=== PATIENT | female | born 1965 | race Caucasian/White ===

== ENCOUNTER 2018-08-09 15:49 | Observation (INO) ==
[~2018-08-09 15:49] MED LIST: BENADRYL IV ONE; COGENTIN PO ONE; NS 1,000 ML IV ONE
--- NOTE | 2018-08-09 16:41 | Diag Imaging Result Doc PS360 ---
EXAM: CHEST-PORTABLE 08/09/2018 HISTORY: AMS TECHNIQUE: Erect AP portable at 1641 COMMENT: Considering differences in technique compared to 07/03/2017 there has been no significant change in the appearance of the chest. There are some apparent linear fibrotic scars present in the left base and lingula. IMPRESSION: Stable chest. Electronically signed by Shai Mejía 08/09/2018 4:38 PM
--- NOTE | 2018-08-09 17:53 | PROVIDER DOCUMENTATION ---
This chart was entered by Quin Olivares Scribe, acting as scribe for Long Guzman MD. HPI-Psychological Disorder - General Source: patient, family - History of Present Illness-Psych Onset/Duration: reports: 24 hours ago Timing: reports: still present Severity: reports: moderate Situational problems related to:: reports: N/A Psychiatric Complaints: reports: hallucinating, paranoid, restlessness Substance Use: reports: none/never Previous psych related hospitalizations?: Yes Patient arrived by:: EMS called by spouse/family Similar Symptoms Previously?: Yes Recently seen or treated by another doctor?: No <Long Guzman - Last Filed: 08/09/18 18:28> <Sal Paredes - Last Filed: 08/09/18 20:03> - General Stated Complaint: Psych; neck pain Time Seen by Provider: 08/09/18 15:38 Allergies/Adverse Reactions: Patient Allergies Allergy/AdvReac Type Severity Reaction Status Date / Time Corticosteroids Allergy Unknown Verified 12/03/13 09:16 (Glucocorticoids) ziprasidone HCl * Allergy Unknown Verified 11/28/13 05:08 [From Geodon] ziprasidone mesylate * Allergy Unknown Verified 11/28/13 05:08 [From Geodon] Home Medications: Home Medication List Medication Instructions Recorded Confirmed Last Taken Type Carbidopa/Levodopa [Carbidopa-Levo 1 each PO DIRECTED 08/20/12 04/03/18 04/02/18 19:00 History 25-100 Tab] Aspirin 81 mg PO DAILY 05/03/17 04/03/18 03/30/18 07:00 History Famotidine 20 mg PO BID 05/03/17 04/03/18 04/02/18 19:00 History Multivitamin [Multivitamins] 1 cap PO DAILY 05/03/17 04/03/18 04/02/18 07:00 His tory Ondansetron HCl [Zofran] 4 mg PO PRN PRN 05/03/17 04/03/18 07/02/17 07:00 History Polyethylene Glycol 3350 [Miralax] 17 g PO DAILY 05/03/17 04/03/18 04/02/18 07:00 History Sennosides/Docusate Sodium 2 tab PO BID 05/03/17 04/03/18 04/02/18 19:00 History [Senexon-S Tablet] Buspirone HCl [Buspar] 5 mg PO BID #60 tab 07/10/17 04/03/18 04/02/18 19:00 Rx Fluoxetine [Prozac] 20 mg PO DAILY #30 capsule 07/10/17 04/03/18 04/02/18 07:00 Rx Hydrocodone Bit/Acetaminophen 1 tab PO TID #90 tablet 07/10/17 04/03/18 04/02/18 15:00 Rx [Hydrocodon-Acetaminophen 5-325] Lamotrigine [Lamictal] 100 mg PO DAILY #30 tablet 07/10/17 04/03/18 04/02/18 07:00 Rx Lamotrigine [Lamictal] 150 mg PO QHS #45 tablet 07/10/17 04/03/18 04/02/18 19:00 Rx Lorazepam 0.5 mg PO TID #90 tablet 07/10/17 04/03/18 04/02/18 15:00 Rx Acetaminophen [Tylenol] 325 mg PO Q4-6H PRN PRN 03/23/18 03/23/18 Unknown History Bismuth Subsalicylate 30 ml PO Q30M PRN PRN 03/23/18 04/03/18 Unknown History [Pepto-Bismol] Clozapine 100 mg PO BID 03/23/18 04/03/18 04/02/18 09:00 History Cyclobenzaprine HCl [Flexeril] 5 mg PO DAILY 03/23/18 04/03/18 04/02/18 07:00 History Famotidine in 0.9 % NaCl 2.5 ml PO BID 03/23/18 04/03/18 04/01/18 21:00 History [Famotidine 20 mg/5 ml-Ns Syr] Magnesium Hydroxide [Milk of 30 ml PO DAILY PRN 03/23/18 03/23/18 Unknown History Magnesia] Promethazine [Phenergan] 12.5 mg AR DIRECTED PRN 03/23/18 03/23/18 Unknown History - History of Present Illness-Psych Nature of Presenting Problem: 52 y/o female presents to ED with paranoid delusions onset yesterday. Mother of pt reports the retirement called and said she was uncooperative and that she needed a psych eval. Pt states the retirement staff is trying to kill her. Pt has hx bipolar and Parkinson's. Mother reports her symptoms began after she was put back on zyprexia a couple of weeks ago. Pt is alert and oriented. (Long Guzman) Review of Systems - Adult - REVIEW OF SYSTEMS - ADULT Constitutional: denies: chills, fever Eyes: reports: no symptoms reported Ears, Nose, Mouth & Throat: reports: no symptoms reported Cardiovascular: denies: chest pain, palpitations Respiratory: denies: cough, shortness of breath Gastrointestinal: denies: abdominal pain, diarrhea, nausea, vomiting Genitourinary: reports: no symptoms reported Musculoskeletal: denies: back pain, joint pain Integumentary: reports: no symptoms reported Neurological: denies: dizziness/vertigo, seizure Psychiatric: reports: emotional problems, other (paranoid hallucinations). denies: suicidal thoughts Endocrine: reports: no symptoms reported Hematologic/Lymphatic: reports: no symptoms reported Allergic/Immunologic: reports: no symptoms reported All Other Systems: Reviewed and Negative <Long Guzman - Last Filed: 08/09/18 18:28> Past History - Adult - PAST MEDICAL HISTORY-ADULT Review of Records: reports: Old Records Reviewed, Nursing Assessment Review, Medications Reviewed Major Childhood Illnesses: reports: denies history Cardiovascular: reports: denies history, HTN Respiratory: reports: denies history Gastrointestinal: reports: denies history Obstetrical/Gynecological: reports: denies history Genitourinary: reports: denies history Musculoskeletal: reports: intervertebral disc disease (spinal stenosis) Neurological: reports: Parkinson's Psychiatric: reports: bipolar, psychiatric problems, ptsd, other (conversion d/o) Endocrine/Immune: reports: denies history Other Conditions: reports: denies history - PRIOR SURGERIES/PROCEDURES Surgical/Procedure History: reports: indwelling device (PEG tube), other (colostomy) - IMMUNIZATION STATUS Childhood Immunizations: See Nurse Assessment Flu Vaccine: See Nurse Assessment - FAMILY HISTORY Family History: reviewed, not pertinent - SOCIAL HISTORY Smoking: non-smoker Substance Use: none/never Alcohol Use Frequency: never Living Situation: care facility <Long Guzman - Last Filed: 08/09/18 18:28> Physical Exam-Psych Focus - Physical Exam-Psych Initial Vital Signs Reviewed: Yes Appearance: appropriate appearance, no memory impairment, alert, anxious Neurological: alert, casket liner II-XII nml as tested, oriented x 3, anxious Behavior/Eye Contact/Speech: cooperative, good eye contact, increased rate of speech Thoughts/Hallucinations: delusions, flight of ideas, paranoid HENMT: normocephalic/atraumatic, moist mucous membranes, normal ENT inspection Neck: non-tender, full range of motion Respiratory: chest non-tender, lungs clear, normal breath sounds Cardiovascular: normal peripheral pulses, regular rate, rhythm Abdominal Exam: normal bowel sounds, non tender, soft, other (PEG tube and colostomy in place. No tenderness) Back Exam: normal inspection, no CVA tenderness Extremity: normal range of motion, non-tender, normal gait Integumentary: normal color, warm/dry <Long Guzman - Last Filed: 08/09/18 18:28> Progress - PLAN OF CARE/RESULTS Result Diagrams: 08/09/18 17:45 - REASSESSMENT Reassessment #1 Time Reassessed: 17:51 Status: improving (Given IVF, IV benadryl and po cogentin in case symptoms are related to zyprexa.) Reassessment Comment: Waiting on labs. Patient not in any distress at this time. - EKG 1 Time of EKG reading by physician:: 16:41 EKG Read and Signed by:: Long Guzman EKG Interpretation (*Must complete 3 of following elements*): Abnormal Rate: 102 Rhythm: Sinus tach [place]: normal QRS: normal AR Interval: normal ST Wave: non-specific ST changes Comments: Early transition. -Dr. Guzman 2 Time of EKG reading by physician:: 18:23 EKG Read and Signed by:: Long Guzman EKG Interpretation (*Must complete 3 of following elements*): Abnormal Rate: 118 Rhythm: sinus tachy [place]: normal QRS: normal AR Interval: normal ST Wave: non-specific ST changes Prior EKG Comparison: unchanged from prior - XRAY 1 XRAY Study: Chest Impression: Normal (COMMENT: Considering differences in technique compared to 07/03/2017 there has been no significant change in the appearance of the chest. There are some apparent linear fibrotic scars present in the left base and lingula. IMPRESSION: Stable chest. Electronically signed by Shai Mejía 08/09/2018 4:38 PM) - CHANGE OF SHIFT REPORT (ED Provider) 1 Report Given and Care Transferred to:: Dr. Paredes Time of Transfer: 19:00 Items Pending: Labs, Physician Consult/Arrival (Medical clearance pending before psych consultation) <Long Guzman - Last Filed: 08/09/18 18:28> - PLAN OF CARE/RESULTS Result Diagrams: 08/09/18 17:45 08/09/18 17:45 - REASSESSMENT Reassessment #2 Time Reassessed: 19:15 Status: improving Reassessment Comment: patient is alert, noted to have tachycardia - CONSULTS/PCP/HOSPITALIST Notification #1 *Consult/PCP/Hospitalist*: aaron Annist Time Discussed: 19:50 Consult Disposition: Admit <Sal Paredes - Last Filed: 08/09/18 20:03> - PLAN OF CARE/RESULTS Progress/Plan/Lab Results: Vital Signs - 8 hr 08/09/18 16:33 08/09/18 16:43 Temperature 98.1 F Pulse Rate 105 H 101 H Respiratory Rate 16 16 Blood Pressure 98/55 98/55 O2 Sat by Pulse Oximetry 96 95 Laboratory Results - last 24 hr 08/09/18 08/09/18 08/09/18 17:45 17:45 17:45 WBC 8.44 RBC 4.48 Hgb 13.4 Hct 41.6 MCV 92.9 MCH 29.9 MCHC 32.2 L RDW Std Deviation 13.6 Plt Count 255 MPV 11.5 H Immature Gran % (Auto) 0.1 Neut % (Auto) 48.3 Lymph % (Auto) 40.3 Camp % (Auto) 10.7 H Eos % (Auto) 0.4 Baso % (Auto) 0.2 Immature Gran # (Auto) 0.01 Neut # (Auto) 4.08 Lymph # (Auto) 3.40 Camp # (Auto) 0.90 H Eos # (Auto) 0.03 Baso # (Auto) 0.02 Sodium 144 Potassium 3.8 Chloride 106 Carbon Dioxide 27 Anion Gap 11 BUN 12 Creatinine 0.5 Estimated GFR/1.73 m2 > 60 BUN/Creatinine Ratio 24 Glucose 73 Calculated Osmolality 285 Calcium 9.6 Magnesium 2.0 Total Bilirubin 0.20 AST 20 ALT < 5 L Alkaline Phosphatase 126 H Total Protein 6.5 Albumin 3.7 Globulin 3.0 Albumin/Globulin Ratio 1.0 Plasma Lactate TSH 1.34 Urine Source Urine Color Urine Clarity Urine pH Ur Specific [place] Urine Protein Urine Ketones Urine Blood Urine Nitrite Urine Bilirubin Urine Urobilinogen Urine Microscopic RBC Urine WBC Urine Microscopic WBC Urine Bacteria Urine Glucose Salicylates < 3.00 L Urine Opiates Screen Ur Oxycodone Screen Urine Methadone Screen U Propoxyphene Qual Acetaminophen < 1.2 L Ur Barbituates Screen Ur Tricyclics Screen Ur Phencyclidine Scrn Ur Amphetamines Screen U Methamphetamines Scrn U Benzodiazepines Scrn Urine Cocaine Screen U Cannabinoids Screen Plasma/Serum Ethyl Alc 08/09/18 08/09/18 08/09/18 17:45 17:45 17:45 WBC RBC Hgb Hct MCV MCH MCHC RDW Std Deviation Plt Count MPV Immature Gran % (Auto) Neut % (Auto) Lymph % (Auto) Camp % (Auto) Eos % (Auto) Baso % (Auto) Immature Gran # (Auto) Neut # (Auto) Lymph # (Auto) Camp # (Auto) Eos # (Auto) Baso # (Auto) Sodium Potassium Chloride Carbon Dioxide Anion Gap BUN Creatinine Estimated GFR/1.73 m2 BUN/Creatinine Ratio Glucose Calculated Osmolality Calcium Magnesium Total Bilirubin AST ALT Alkaline Phosphatase Total Protein Albumin Globulin Albumin/Globulin Ratio Plasma Lactate 1.0 TSH 1.28 Urine Source Urine Color Urine Clarity Urine pH Ur Specific [place] Urine Protein Urine Ketones Urine Blood Urine Nitrite Urine Bilirubin Urine Urobilinogen Urine Microscopic RBC Urine WBC Urine Microscopic WBC Urine Bacteria Urine Glucose Salicylates Urine Opiates Screen Ur Oxycodone Screen Urine Methadone Screen U Propoxyphene Qual Acetaminophen Ur Barbituates Screen Ur Tricyclics Screen Ur Phencyclidine Scrn Ur Amphetamines Screen U Methamphetamines Scrn U Benzodiazepines Scrn Urine Cocaine Screen U Cannabinoids Screen Plasma/Serum Ethyl Alc 08/09/18 08/09/18 17:50 17:50 WBC RBC Hgb Hct MCV MCH MCHC RDW Std Deviation Plt Count MPV Immature Gran % (Auto) Neut % (Auto) Lymph % (Auto) Camp % (Auto) Eos % (Auto) Baso % (Auto) Immature Gran # (Auto) Neut # (Auto) Lymph # (Auto) [place] # (Auto) Eos # (Auto) Baso # (Auto) Sodium Potassium Chloride Carbon Dioxide Anion Gap BUN Creatinine Estimated GFR/1.73 m2 BUN/Creatinine Ratio Glucose Calculated Osmolality Calcium Magnesium Total Bilirubin AST ALT Alkaline Phosphatase Total Protein Albumin Globulin Albumin/Globulin Ratio Plasma Lactate TSH Urine Source CATH Urine Color YELLOW Urine Clarity VERY CLOUDY A Urine pH 5.0 Ur Specific [place] 1.020 Urine Protein 2+(100 mg/dL) A Urine Ketones 2+(Moderate) A Urine Blood 1+ A Urine Nitrite POSITIVE A Urine Bilirubin NEGATIVE Urine Urobilinogen 1 Urine Microscopic RBC 10-20 A Urine WBC 2+ A Urine Microscopic WBC 20-40 A Urine Bacteria 3+ Urine Glucose NEGATIVE Salicylates Urine Opiates Screen PRESUMPTIVE POSITIVE A Ur Oxycodone Screen NONE DETECTED Urine Methadone Screen NONE DETECTED U Propoxyphene Qual NONE DETECTED Acetaminophen Ur Barbituates Screen NONE DETECTED Ur Tricyclics Screen NONE DETECTED Ur Phencyclidine Scrn PRESUMPTIVE POSITIVE A Ur Amphetamines Screen NONE DETECTED U Methamphetamines Scrn NONE DETECTED U Benzodiazepines Scrn PRESUMPTIVE POSITIVE A Urine Cocaine Screen NONE DETECTED U Cannabinoids Screen NONE DETECTED Plasma/Serum Ethyl Alc Orders Category Date Time Status Nursing- Obtain EKG once Care 08/09/18 15:38 Active Saline Loc NOW Care 08/09/18 15:38 Active Straight Catheterization ORDERED Care 08/09/18 15:40 Active CHEST-PORTABLE [RAD] Stat Exams 08/09/18 15:40 Completed ACETAMINOPHEN [TDM] Stat Lab 08/09/18 17:45 Completed ALCOHOL BLOOD Stat Lab 08/09/18 17:45 Completed BLOOD CULTURE [BLDCUL] Stat Lab 08/09/18 19:43 Ordered CBC WITH ELECTRONIC DIFF [HEME] Stat Lab 08/09/18 17:45 Completed COMPREHENSIVE METABOLIC PANEL [CHEM] Stat Lab 08/09/18 17:45 Completed LACTATE, PLASMA [CHEM] Stat Lab 08/09/18 17:45 Completed MAGNESIUM [CHEM] Stat Lab 08/09/18 17:45 Completed SALICYLATES [TDM] Stat Lab 08/09/18 17:45 Completed TSH Stat Lab 08/09/18 17:45 Completed TSH Stat Lab 08/09/18 17:[address] W/POSS RFLX CULT [URINALYSIS] Stat Lab 08/09/18 17:50 Completed URINE CULTURE [RM] Routine Lab 08/09/18 18:[address]UG SCREEN [address] Stat Lab 08/09/18 17:50 Completed 0.9% Sodium Chloride Inj [Ns] 1,000 ml Med 08/09/18 15:41 Discontinued IV 999 mls/hr 0.9% Sodium Chloride Inj [Ns] 1,000 ml Med 08/09/18 18:49 Active IV 999 mls/hr Benztropine [Cogentin] Med 08/09/18 18:07 Discontinued 1 mg .ROUTE .STK-MED ONE Benztropine [Cogentin] Med 08/09/18 15:41 Discontinued 1 mg PO NOW ONE CefTRIAXONE [Rocephin] 1 gm Med 08/09/18 18:26 Discontinued 0.9% Sodium Chloride Inj [Ns] 50 ml IV NOW Diphenhydramine [Benadryl] Med 08/09/18 15:41 Discontinued 25 mg IV NOW ONE Diphenhydramine [Benadryl] Med 08/09/18 18:07 Discontinued 50 mg .ROUTE .STK-MED ONE Lorazepam [Ativan] Med 08/09/18 18:26 Discontinued 1 mg IV NOW ONE EKG [EKG] Stat Ther 08/09/18 15:38 Draft EKG [EKG] Stat Ther 08/09/18 18:19 Draft Departure - Departure Certified Medical Emergency: Emergent <Long Guzman - Last Filed: 08/09/18 18:28> - Departure Date of Disposition Decision: 08/09/18 Time of Disposition Decision: 19:53 - Critical Care Note This patient required my direct & personal management of CC.: No <Sal Paredes - Last Filed: 08/09/18 20:03> - Departure DIAGNOSIS: Major neurocognitive disorder, due to parkinson's disease, with behavioral disturbance, mild, Schizoaffective disorder, bipolar type, Altered mental state UTI (urinary tract infection) Qualifiers: Urinary tract infection type: acute cystitis Hematuria presence: with hematuria Qualified Code(s): N30.01 - Acute cystitis with hematuria Antidepressant drug adverse reaction Qualifiers: Encounter type: initial encounter Qualified Code(s): T43.205A - Adverse effect of unspecified antidepressants, initial encounter Disposition: ADMITTED INPATIENT 09 Condition: Fair Additional Freetext Instructions: ED Follow Up Instructions: You have been treated by a care provider in the Emergency Department. These instructions are being provided to you so you can have an understanding of how to care for yourself upon discharge. Upon discharge from the Emergency Department, you are responsible for making arrangements for follow-up care by a physician of your choice. Take all prescribed medications as directed. Return to the Emergency Department immediately for any new or worsening symptoms. You may call the Physician Referral phone number at [phone] to obtain a list of Physicians who are taking new patients. Referrals and Follow-Ups: None,PCP [Primary Care Provider] - Attestation - Physician/ KELSEY Attestation Patient care was provided by Advanced Practice Provider:: No The physician spent face to face time with patient:: Yes Advanced Practice Provider documentation review:: Supervising physician onsite and consulted in the evaluation and care of this patient. The physician did have a face to face encounter with the patient. <Long Guzman - Last Filed: 08/09/18 18:28> - Physician/ KELSEY Attestation Patient care was provided by Advanced Practice Provider:: No The physician spent face to face time with patient:: Yes Advanced Practice Provider documentation review:: Supervising physician onsite and consulted in the evaluation and care of this patient. The physician did have a face to face encounter with the patient. <Sal Paredes - Last Filed: 08/09/18 20:03> This chart was documented by the indicated scribe, (Quin Olivares Scribe) and accurately reflects the services I performed and decisions made by , Long Guzman MD, as attested by the provider's signature.
[2018-08-09] MEDS ORDERED: COGENTIN ONE (18:07)
[2018-08-09] MEDS ORDERED: BENADRYL ONE (18:07)
[2018-08-09 18:14] LABS: BILIRUBIN URINE NEGATIVE (NEGATIVE); BLOOD URINE 1+ (NEGATIVE); CLARITY VERY CLOUDY (CLEAR); COLOR YELLOW; GLUCOSE URINE NEGATIVE (NEGATIVE); KETONE URINE 2+(Moderate) mg/dL (NEGATIVE); LEUKOCYTES URINE 2+ (NEGATIVE); NITRITE URINE POSITIVE (NEGATIVE); PROTEIN URINE 2+(100 mg/dL) mg/dL (NEGATIVE); UROBILINOGEN URINE 1 mg/dL
[2018-08-09 18:22] LABS: URINE BACTERIA 3+ /HFP; URINE SOURCE CATH; URINE WBC 20-40 /HPF (<10)
[2018-08-09] MEDS ORDERED: ROCEPHIN 1 GM in NS 50 ML IV ONE (18:26)
[2018-08-09] MEDS ORDERED: ATIVAN IV ONE (18:26)
[2018-08-09 18:31] LABS: UR AMPHETAMINES QUAL NONE DETECTED (NONE DETECT); UR BARBITUATES QUAL NONE DETECTED (NONE DETECT); UR BENZODIAZEPIN QUAL PRESUMPTIVE POSITIVE (NONE DETECT); UR CANNABINOIDS QUAL NONE DETECTED (NONE DETECT); UR COCAINE QUAL NONE DETECTED (NONE DETECT); UR METHADONE QUAL NONE DETECTED (NONE DETECT); UR METHAMPHETAMINE QUAL NONE DETECTED (NONE DETECT); UR OPIATES QUAL PRESUMPTIVE POSITIVE (NONE DETECT); UR OXYCODONE QUAL NONE DETECTED (NONE DETECT); UR PCP QUAL PRESUMPTIVE POSITIVE (NONE DETECT); UR PROPOXYPHENE QUAL NONE DETECTED (NONE DETECT); UR TCA QUAL NONE DETECTED (NONE DETECT)
[2018-08-09 18:32] LABS: BASO# 0.02 X1000 (0.0-0.2); BASO% 0.2 % (0.0-0.8); EOS# 0.03 X1000 (0.0-0.7); EOS% 0.4 % (0.0-10.0); HEMATOCRIT 41.6 % (37.0-47.0); HEMOGLOBIN 13.4 g/dL (12.0-16.0); IMM GRAN# 0.01 X1000 (0.0-0.04); IMM GRAN% 0.1 % (0.0-0.5); LYMPH% 40.3 % (20.5-51.1); MCH 29.9 PG (27-31); MCHC 32.2 g/dL (33-37); MCV 92.9 FL (81-99); MONO% 10.7 % (1.7-9.3); MPV 11.5 FL (7.4-10.4); NEUT# 4.08 X1000 (1.4-6.5); NEUT% 48.3 % (42.2-75.2); PLT 255 X1000 (130-400); RBC 4.48 XMIL (4.2-5.4); RDW 13.6 % (11.5-14.5); WBC 8.44 X1000 (4.8-10.8)
--- NOTE | 2018-08-09 18:37 | EKG Report ---
Test Performed on : 08/09/2018 4:41:16 PM Test Reason : psych eval Blood Pressure : / mmHG Vent. Rate : 100 BPM Atrial Rate : 100 BPM P-R Int : 110 ms QRS Dur : 080 ms QT Int : 356 ms P-R-T Axes : 045 053 053 degrees QTc Int : 459 ms Sinus rhythm. with short OK Nonspecific ST and T wave abnormality Abnormal ECG When compared with ECG of 06-JUL-2017 04:02, OK interval has decreased Unconfirmed Result
--- NOTE | 2018-08-09 18:42 | EKG Report ---
Test Performed on : 08/09/2018 4:41:42 PM Test Reason : psych eval Blood Pressure : / mmHG Vent. Rate : 102 BPM Atrial Rate : 102 BPM P-R Int : 118 ms QRS Dur : 078 ms QT Int : 356 ms P-R-T Axes : 041 051 051 degrees QTc Int : 463 ms Sinus tachycardia. Nonspecific T wave abnormality Abnormal ECG When compared with ECG of 09-AUG-2018 16:41, (Unconfirmed) No significant change was found Unconfirmed Result
[2018-08-09 18:46] LABS: ACETAMINOPHEN < 1.2 ug/mL (10-30); AGAP 11; ALBUMIN 3.7 g/dL (3.5-5.0); ALKALINE PHOSPHATASE 126 U/L (32-104); BUN 12 mg/dL (8-22); CALCIUM 9.6 mg/dL (8.8-10.2); CHLORIDE 106 mmol/L (98-107); COSMO 285; CREATININE 0.5 mg/dL (0.5-0.9); ESTIMATED GFR > 60; GLUCOSE 73 mg/dL (70-104); GOT 20 U/L (10-30); GPT < 5 U/L (10-36); POTASSIUM 3.8 mmol/L (3.5-5.1); SALICYLATES < 3.00 mg/dL (3-10); SODIUM 144 mmol/L (136-145); TCO2 27 mmol/L (25-35); TOTAL PROTEIN 6.5 g/dL (6.3-8.3)
[2018-08-09] MEDS ORDERED: NS 1,000 ML IV ONE ×2 (18:49→19:54)
[2018-08-10] MEDS ORDERED: MILK OF MAGNESIA PO PRN (10:22)
[2018-08-10] MEDS ORDERED: TYLENOL PO PRN (10:22)
[2018-08-10] MEDS: MIRALAX PO SCH (11:00)
[2018-08-10] MEDS: BUSPAR PO SCH ×2 (11:00→21:19)
[2018-08-10] MEDS: LAMICTAL PO SCH ×2 (11:01→21:20)
[2018-08-10] MEDS: THERA M PLUS PO SCH (11:01)
[2018-08-10] MEDS: PERICOLACE PO SCH ×2 (11:01→21:20)
[2018-08-10] MEDS: NS 1,000 ML IV SCH (11:01)
[2018-08-10] MEDS: MYCOSTATIN POWDER TOP SCH (11:01)
[2018-08-10] MEDS: SINEMET CR 25/100 PO SCH ×2 (11:02→19:45)
[2018-08-10] MEDS: ZYPREXA PO SCH ×2 (11:02→21:20)
[2018-08-10] MEDS: ATIVAN PO SCH ×2 (11:02→16:52)
--- NOTE | 2018-08-10 11:26 | HISTORY AND PHYSICAL ---
PRIMARY CARE PHYSICIAN: Listed as none. CHIEF COMPLAINT: Paranoid delusions, increased confusion, uncooperative with care at assisted that began yesterday. HISTORY: This is a 52-year-old female who presented to [facility] ER via EMS from residential home. Staff reported that she was having paranoid delusions. [place] that the assisted staff was trying to kill her. Was uncooperative with care. She has had a longstanding history of schizoaffective disorder and conversion disorder. Her workup in the emergency room showed a urinalysis with positive nitrites, 2+ white blood cells, 3+ bacteria. All other laboratory data was unremarkable. Chest x-ray was stable. She was admitted for further evaluation and treatment. PAST MEDICAL HISTORY: Schizoaffective disorder, conversion disorder, Parkinson's disease, hypertension, GERD, dysphagia, PE, DVT, and osteoporosis. PAST SURGICAL HISTORY: Colostomy, PEG, and a cholecystectomy. FAMILY HISTORY: Reviewed and noncontributory. SOCIAL HISTORY: She currently lives in a residential facility. Denied any tobacco, alcohol, or illicit drug use. ALLERGIES: To glucocorticoids, Geodon. HOME MEDICATIONS: Tylenol 500 mg p.o. q.4 hours p.r.n., BuSpar 5 mg p.o. b.i.d., carbidopa/levodopa 25/100 one b.i.d. at 7 a.m. and 3 p.m., carbidopa/levodopa 50/200 b.i.d. at 11 a.m. and 7 p.m., 2.5 mL p.o. b.i.d., [place] 5 one p.o. t.i.d., Lamictal 100 mg p.o. daily and 150 mg p.o. at bedtime, lorazepam 0.5 mg p.o. t.i.d., milk of magnesia 30 mL p.o. p.r.n., multivitamin p.o. daily, nystatin powder topically daily, olanzapine 5 mg p.o. b.i.d., Zofran 4 mg p.o. q.8 hours p.r.n. will be held, Nuplazid 34 mg p.o. daily, MiraLAX 17 g p.o. daily, Inderal 10 mg p.o. t.i.d., and senna 2 tablets p.o. b.i.d. LABORATORY DATA: Showed a white blood cell count of 8.44, hemoglobin 13.4, hematocrit 41.6, platelets 255,000. Sodium 144, potassium 3.8, chloride 106, CO2 27, BUN of 12, creatinine 0.5, glucose of 73, magnesium of 2. TSH of 1.34. Plasma lactate of 1. Urinalysis with positive nitrites, 2+ white blood cells, 3+ bacteria. Salicylates less than 3. Acetaminophen less than 1.2. Urine drug screen presumptive positive for opiates, phencyclidine, and benzodiazepine. Serum alcohol level showed none detected. Chest x-ray showed a stable chest. EKG showed sinus rhythm with short NM at 100. REVIEW OF SYSTEMS: Unable to obtain from patient as she is nonverbal at this time. PHYSICAL EXAMINATION: VITAL SIGNS: On arrival showed a temperature of 98.1 degrees, a pulse of 105, respirations 16, blood pressure 98/55, saturating 96% on room air. Currently, blood pressure is up to 137/84. GENERAL: This is a 52-year-old, female who is lying in the bed. HEENT: Normocephalic, atraumatic. Normal ENT inspection. Oropharynx and nares are clear. Eyes: Pupils are equal, round, and reactive to light and accommodation. Extraocular movements are intact. NECK: Normal inspection. Normal range of motion. LUNGS: Clear to auscultation bilaterally with equal lung expansion and chest wall movement. HEART: Regular rate and rhythm. No murmurs, rubs, or gallops. ABDOMEN: Soft, nontender, nondistended. PEG tube and colostomy noted to be in place. MUSCULOSKELETAL: Moves all extremities well. NEUROLOGICAL: The cranial nerves 2-12 appear grossly intact. ASSESSMENT: 1. Paranoid delusions. 2. Urinary tract infection. 3. Schizoaffective disorder, history of. 4. Hypertension, history of. PLAN: She was admitted to the medical floor. Placed on neurological checks q.4 hours for 24 hours, telemetry, NPO. We are awaiting her urine culture and blood cultures. We will place her on Rocephin 1 gram IV q.24, and she did receive that 1st dose in the emergency room. We will continue her home medications as previously identified. I am going to place her on normal saline at 75 mL an hour. Recheck CBC and BMP in the a.m. Per ER documentation, the patient was talking in the emergency room, rapid speech with some delusions. This morning, the patient was nonverbal, very guarded. Certainly appeared paranoid but did allow me to complete my workup and assessment but was nonverbal this morning and would not answer any of my questions so further orders after being seen by attending. Dictated by DIAZ Hemphill for Aleksey Zepeda MD cc: DIAZ Hemphill MD [facility]
[2018-08-10] MEDS ORDERED: INDERAL PO ONE (11:34)
[2018-08-10] MEDS: PATIENT'S OWN MED PO SCH (12:08)
[2018-08-10] MEDS: PEPCID PO SCH ×2 (12:15→21:20)
[2018-08-10] MEDS: NORCO-5 PO SCH ×2 (12:15→16:44)
[2018-08-10] MEDS ORDERED: INDERAL PO SCH (13:00)
--- NOTE | 2018-08-10 14:16 | EKG Report ---
Test Performed on : 08/10/2018 11:45:40 AM Test Reason : tachycardia Blood Pressure : / mmHG Vent. Rate : 123 BPM Atrial Rate : 123 BPM P-R Int : 138 ms QRS Dur : 072 ms QT Int : 160 ms P-R-T Axes : 058 059 -42 degrees QTc Int : 229 ms Sinus tachycardia. Nonspecific ST and T wave abnormality Abnormal ECG When compared with ECG of 09-AUG-2018 18:19, (Unconfirmed) Nonspecific T wave abnormality, worse in Lateral leads Unconfirmed Result
--- NOTE | 2018-08-10 16:23 | HISTORY AND PHYSICAL ---
ADDENDUM: The patient is a 52-year-old female, severe parkinsonism, malnutrition, status post colostomy, PEG tube, who comes in with confusion. She was found to have a urinary tract infection. On exam today, she still has low-grade fevers. Her white count was normal but she had gross pyuria and she had confusion, which I feel was likely delirium related to metabolic encephalopathy. She has been placed on Rocephin. We are going to continue her regular medications and follow. She has had some tachycardia. I am not sure if that is related to sepsis or just the fact that she has not been on her propranolol. We will continue to keep an eye on that. TSH levels are normal. This is a [id number] encounter note with DIAZ Hemphill. On exam, she is tremulous. Abdominal exam is benign. She has an ostomy. Does not look to be any particular distress and her mental status seems to have improved. cc: Aleksey Zepeda MD
[2018-08-10] MEDS: SINEMET 25/100 PO SCH (16:53)
[2018-08-10] MEDS: ROCEPHIN 1 GM in NS 50 ML IV SCH (19:00)
[2018-08-10] MEDS: INDERAL PO SCH (21:21)
[2018-08-11] MEDS: NS 1,000 ML IV SCH ×2 (01:33→15:34)
[2018-08-11] MEDS: ATIVAN PO SCH ×3 (06:04→15:34)
[2018-08-11] MEDS: MIRALAX PO SCH (06:05)
[2018-08-11] MEDS: SINEMET 25/100 PO SCH ×2 (06:05→15:34)
[2018-08-11 07:10] LABS: BASO# 0.02 X1000 (0.0-0.2); BASO% 0.3 % (0.0-0.8); EOS# 0.04 X1000 (0.0-0.7); EOS% 0.7 % (0.0-10.0); HEMATOCRIT 40.9 % (37.0-47.0); HEMOGLOBIN 12.9 g/dL (12.0-16.0); IMM GRAN# 0.01 X1000 (0.0-0.04); IMM GRAN% 0.2 % (0.0-0.5); LYMPH# 2.28 X1000 (1.2-3.4); LYMPH% 39.4 % (20.5-51.1); MCH 29.5 PG (27-31); MCHC 31.5 g/dL (33-37); MCV 93.4 FL (81-99); MONO# 0.55 X1000 (0.11-0.59); MONO% 9.5 % (1.7-9.3); MPV 11.4 FL (7.4-10.4); NEUT# 2.88 X1000 (1.4-6.5); NEUT% 49.9 % (42.2-75.2); PLT 258 X1000 (130-400); RBC 4.38 XMIL (4.2-5.4); RDW 13.5 % (11.5-14.5); WBC 5.78 X1000 (4.8-10.8)
[2018-08-11 07:30] LABS: AGAP 12; BUN 3 mg/dL (8-22); CALCIUM 9.1 mg/dL (8.8-10.2); CHLORIDE 106 mmol/L (98-107); COSMO 283; CREATININE 0.4 mg/dL (0.5-0.9); ESTIMATED GFR > 60; GLUCOSE 96 mg/dL (70-104); POTASSIUM 3.3 mmol/L (3.5-5.1); SODIUM 144 mmol/L (136-145); TCO2 26 mmol/L (25-35)
[2018-08-11] MEDS: PATIENT'S OWN MED PO SCH (09:30)
[2018-08-11] MEDS: BUSPAR PO SCH ×2 (09:31→20:22)
[2018-08-11] MEDS: LAMICTAL PO SCH ×2 (09:32→20:22)
[2018-08-11] MEDS: INDERAL PO SCH ×2 (09:32→13:51)
[2018-08-11] MEDS: MYCOSTATIN POWDER TOP SCH (09:32)
[2018-08-11] MEDS: THERA M PLUS PO SCH (09:33)
[2018-08-11] MEDS: PERICOLACE PO SCH ×2 (09:33→20:22)
[2018-08-11] MEDS: NORCO-5 PO SCH ×2 (09:33→13:50)
[2018-08-11] MEDS: PEPCID PO SCH ×2 (09:33→20:23)
[2018-08-11] MEDS: ZYPREXA PO SCH ×2 (09:34→20:22)
[2018-08-11] MEDS: POTASSIUM CHLORIDE 20 MEQ/SWI 20 MEQ/100 ML IVPB IV SCH ×2 (10:41→13:50)
[2018-08-11] MEDS: SINEMET CR 25/100 PO SCH ×2 (11:45→19:21)
[2018-08-11] MEDS ORDERED: LOPRESSOR IV ONE (14:34)
--- NOTE | 2018-08-11 15:14 | PROGRESS NOTE ---
DATE: 08/11/2018 SUBJECTIVE: Patient has no complaints. OBJECTIVE: Blood pressure is 146/64, heart rates in the 130s, sinus, respiratory rate 18, temperature 97.9 degrees. She is complaining mostly of pain. She is also fairly tremulous. Cardiovascular: Regular rate and rhythm. Pulmonary: Bilateral breath sounds clear to auscultation. GI: Soft, nontender, nondistended. Bowel sounds were positive. Laboratory Data: White count is 5, hemoglobin and hematocrit 12 and 40, platelets 258,000. Potassium 3.3. ASSESSMENT AND PLAN: 1. Urinary tract infection. She has a Klebsiella urinary tract infection. It is sensitive to Rocephin so we will continue that for the time-being. It is, fortunately, not an extended- spectrum B-lactamase. We will continue to monitor. 2. Generalized tachycardia. I am not sure if that is related to fluid. She is not febrile but she is just persistently tachycardic without a clear reason. 3. Schizoaffective disorder. This seems to be stable on her current medications. We will continue to monitor. 4. Hypertension. We will continue to follow. I have switched her to Lopressor and will see how she is doing. 5. Disposition, pending her clinical status. At baseline, I do not think she is extremely functional but we will see how she is doing. cc: Aleksey Zepeda MD
[2018-08-11] MEDS: LOPRESSOR PO SCH ×2 (15:34→20:21)
[2018-08-11] MEDS: ROCEPHIN 1 GM in NS 50 ML IV SCH (19:20)
[2018-08-11] MEDS: NORCO-7.5 PO PRN (20:22)
[2018-08-12] MEDS: NORCO-7.5 PO PRN ×4 (03:11→18:40)
[2018-08-12] MEDS: LOPRESSOR PO SCH ×3 (03:11→14:18)
[2018-08-12] MEDS: NS 1,000 ML IV SCH ×2 (04:25→18:05)
[2018-08-12] MEDS: SINEMET 25/100 PO SCH ×2 (06:17→14:25)
[2018-08-12] MEDS: MIRALAX PO SCH (06:17)
[2018-08-12] MEDS: ATIVAN PO SCH ×3 (06:17→14:25)
[2018-08-12 06:39] LABS: BASO# 0.02 X1000 (0.0-0.2); BASO% 0.3 % (0.0-0.8); EOS# 0.05 X1000 (0.0-0.7); EOS% 0.7 % (0.0-10.0); HEMATOCRIT 38.5 % (37.0-47.0); HEMOGLOBIN 12.5 g/dL (12.0-16.0); IMM GRAN# 0.01 X1000 (0.0-0.04); IMM GRAN% 0.1 % (0.0-0.5); LYMPH# 2.98 X1000 (1.2-3.4); MCH 30.3 PG (27-31); MCHC 32.5 g/dL (33-37); MCV 93.4 FL (81-99); MONO# 0.67 X1000 (0.11-0.59); MONO% 9.4 % (1.7-9.3); MPV 11.4 FL (7.4-10.4); NEUT# 3.36 X1000 (1.4-6.5); NEUT% 47.5 % (42.2-75.2); PLT 250 X1000 (130-400); RBC 4.12 XMIL (4.2-5.4); RDW 13.3 % (11.5-14.5); WBC 7.09 X1000 (4.8-10.8)
[2018-08-12 06:54] LABS: AGAP 10; BUN 5 mg/dL (8-22); CALCIUM 8.9 mg/dL (8.8-10.2); CHLORIDE 103 mmol/L (98-107); COSMO 274; CREATININE 0.3 mg/dL (0.5-0.9); ESTIMATED GFR > 60; GLUCOSE 92 mg/dL (70-104); MAGNESIUM 2.1 mg/dL (1.5-2.7); SODIUM 139 mmol/L (136-145); TCO2 26 mmol/L (25-35)
[2018-08-12] MEDS: PATIENT'S OWN MED PO SCH (10:12)
[2018-08-12] MEDS: SINEMET CR 25/100 PO SCH ×2 (10:13→18:05)
[2018-08-12] MEDS: THERA M PLUS PO SCH (10:14)
[2018-08-12] MEDS: BUSPAR PO SCH ×2 (10:14→20:28)
[2018-08-12] MEDS: ZYPREXA PO SCH ×2 (10:14→20:28)
[2018-08-12] MEDS: PERICOLACE PO SCH ×2 (10:15→20:29)
[2018-08-12] MEDS: LAMICTAL PO SCH ×2 (10:15→20:28)
[2018-08-12] MEDS: PEPCID PO SCH ×2 (10:16→20:28)
[2018-08-12] MEDS: MYCOSTATIN POWDER TOP SCH (10:31)
--- NOTE | 2018-08-12 15:02 | Diag Imaging Result Doc PS360 ---
EXAM: CERVICAL SPINE 2-VIEWS HISTORY: neck pain, severe TECHNIQUE: AP and lateral with obliques, five views COMPARISON: None. FINDINGS: There is good alignment to the cervical spine. No precervical soft tissue swelling. No subluxation. Moderate degenerative bone spurs in the mid and lower cervical spine. IMPRESSION: Moderate degenerative changes. Electronically signed by Ricardo Cortes 08/12/2018 3:00 PM
--- NOTE | 2018-08-12 15:37 | PROGRESS NOTE ---
DATE: 08/12/2018 SUBJECTIVE: Patient has no major complaints except she feels like her neck is broken. She explained that that was unlikely, but other than that she seemed comfortable. OBJECTIVE: Blood pressure 124/70, heart rate 87, respiratory rate 18, and temperature 98 degrees.Cardiovascular: Regular rate and rhythm. Pulmonary: Bilateral breath sounds. Clear to auscultation. GI: Soft, nontender, and nondistended. Bowel sounds are positive. Extremities: No clubbing or cyanosis. Lymphatic: No peripheral edema. Neurological: Nonfocal. LABORATORY DATA: Unremarkable. Her urine is positive for Klebsiella. White count 7, hemoglobin and hematocrit 12 and 38. Basic was normal. PROBLEM LIST: 1. Klebsiella urinary tract infection. She is on Rocephin, and can be discharged on Keflex. 2. Tachycardia is improved on Toprol. We will continue to follow. 3. Schizoaffective disorder. Continue regular medications. 4. Hypertension also better controlled since medication adjustment. DISPOSITION: Anticipate discharge to rehab soon likely tomorrow. We will continue to follow. cc: Aleksey Zepeda MD
[2018-08-12] MEDS: ROCEPHIN 1 GM in NS 50 ML IV SCH (18:05)
[2018-08-12] MEDS: TOPROL XL PO SCH (20:28)
[2018-08-12] MEDS: ZOFRAN IV PRN (22:29)
[2018-08-13] MEDS: ZOFRAN IV PRN ×2 (02:26→12:52)
[2018-08-13] MEDS: ATIVAN PO SCH ×2 (06:01→12:51)
[2018-08-13] MEDS: MIRALAX PO SCH (06:02)
[2018-08-13] MEDS: SINEMET 25/100 PO SCH (06:02)
[2018-08-13] MEDS: NS 1,000 ML IV SCH (06:47)
[2018-08-13] MEDS: PERICOLACE PO SCH (10:12)
[2018-08-13] MEDS: TOPROL XL PO SCH (10:12)
[2018-08-13] MEDS: BUSPAR PO SCH (10:13)
[2018-08-13] MEDS: PATIENT'S OWN MED PO SCH (10:14)
[2018-08-13] MEDS: THERA M PLUS PO SCH (10:14)
[2018-08-13] MEDS: PEPCID PO SCH (10:16)
[2018-08-13] MEDS: ZYPREXA PO SCH (10:16)
[2018-08-13] MEDS: LAMICTAL PO SCH (10:17)
[2018-08-13] MEDS: MYCOSTATIN POWDER TOP SCH (10:17)
[2018-08-13 11:04] VITALS: BP 132/74
--- NOTE | 2018-08-13 11:17 | DISCHARGE SUMMARY ---
ADMISSION DATE: 08/09/2018 DISCHARGE DATE: 08/13/2018 ADMISSION DIAGNOSES: 1. Paranoid delusions. 2. Urinary tract infection. 3. Schizoaffective disorder, history of. 4. Hypertension, history of. DISCHARGE DIAGNOSES: 1. Klebsiella urinary tract infection. 2. Tachycardia, improved on Toprol. 3. Schizoaffective disorder. 4. Hypertension, improved. SUMMARY OF FINDINGS: This is a 52-year-old female who presented to the ER from a senior care facility, where she was having paranoid delusions, felt that the intermediate staff was trying to kill her, was uncooperative with care. She does have a longstanding history of schizoaffective disorder and conversion disorder. Workup in the ER did show a UA with positive nitrites, 2+ white blood cells, and 3+ bacteria. Her urine culture grew out a Klebsiella pneumoniae urinary tract infection. She has been being treated appropriately. We did make an adjustment in her blood pressure medicine, and we switched her to Lopressor, and her blood pressures have improved. Today, she is at 146/83, and it is now felt that she can safely be discharged back to her long- term care facility. DISCHARGE MEDICATIONS: Tylenol 500 mg p.o. every 4 hours p.r.n., BuSpar 5 mg p.o. b.i.d., carbidopa/levodopa 25/100 p.o. as directed and 50/200 p.o. as directed, famotidine 2.5 mL p.o. b.i.d., Lamictal 100 mg p.o. daily, lorazepam 0.5 mg p.o. t.i.d., [place] 5 one p.o. t.i.d., Keflex 500 mg p.o. b.i.d. (#20 with no refills) x10 days, Zofran 4 mg p.o. every 8 hours p.r.n., milk of magnesia 30 mL p.o. p.r.n., multivitamin p.o. daily, nystatin powder topically daily, olanzapine 5 mg p.o. b.i.d., Nuplazid 34 mg p.o. daily, MiraLAX 17 grams p.o. daily, sennoside docusate sodium 2 tablets p.o. b.i.d. FOLLOWUP: She will follow up with the facility physician while at her long-term care facility. TIME SPENT: A 35-minute discharge. Dictated by DIAZ Hemphill for Aleksey Zepeda MD cc: DIAZ Hemphill MD
[2018-08-13] MEDS: SINEMET CR 25/100 PO SCH (12:51)
[2018-08-13] MEDS: NORCO-7.5 PO PRN (15:09)
--- NOTE | 2018-08-14 12:08 | DISCHARGE SUMMARY ---
ADMISSION DATE: 08/09/2018 DISCHARGE DATE: 08/13/2018 DISCHARGE ADDENDUM: She is examined the day of discharge. She is still complaining of neck pain. Other than that, she seems to be doing okay. No fevers. She seems fairly stable. Her exam is unremarkable. Clear lungs. She is a little bit tachy, but overall doing okay. She had a Klebsiella urinary tract infection with encephalopathy. We are going to discharge her on Keflex based on sensitivities. She also needs to be on Toprol which I do not think we have got that added here in her home medications. I am going to do 50 daily on that. DISCHARGE CONDITION: Stable. Please see full discharge summary per DIAZ Hemphill. cc: Aleksey Zepeda MD
== END 2018-08-13 16:55 ==
LOC: P.ED 15:49 → SUATTDRO 21:41 → INTOOBSV 21:41 → P.MEDSURG 21:41
PROVIDERS: ATTEND Internal Medicine
CPT/HCPCS: 36415; 71010; 71045; 72040; 80048; 80053; 80104; 80196; 80301; 80305; 80307; 80320; 80324; 80329; 81001; 82003; 82055; 83605; 83735; 84443; 85025; 87040; 87077; 87088; 87186; 93005; 96361; 96365; 96375; 99285; A9270; G0431; G0434; G0477; G0480; G6038; G6039; G6040; J0696; J1200; J2405; J3480; J7030

== ENCOUNTER 2019-02-02 21:20 | Inpatient (IN) ==
--- NOTE | 2019-02-02 21:38 | PROVIDER DOCUMENTATION ---
HPI-General Adult - General Chief Complaint: Nausea/Vomiting Stated Complaint: nausea/ vomiting Time Seen by Provider: 02/02/19 21:23 Source: patient, RN/MD Allergies/Adverse Reactions: Patient Allergies Allergy/AdvReac Type Severity Reaction Status Date / Time Corticosteroids Allergy Unknown Unknown Verified 02/02/19 22:04 (Glucocorticoids) ziprasidone HCl * Allergy Unknown Verified 02/02/19 22:04 [From [facility] [place]] ziprasidone mesylate * Allergy Unknown Verified 02/02/19 22:04 [From [facility] [place]] Home Medications: Home Medication List Medication Instructions Recorded Confirmed Last Taken Type Carbidopa/Levodopa [Carbidopa-Levo 1 each PO BID 08/20/12 02/02/19 04/02/18 19:00 History 25-100 Tab] Multivitamin [Multivitamins] 1 cap PO DAILY 05/03/17 02/02/19 04/02/18 07:00 History Ondansetron HCl [Zofran] 4 mg PO Q8H PRN PRN 05/03/17 02/02/19 07/02/17 07:00 History Polyethylene Glycol 3350 [Miralax] 17 g PO DAILY 05/03/17 02/02/19 04/02/18 07:00 History Sennosides/Docusate Sodium 2 tab PO BID 05/03/17 02/02/19 04/02/18 19:00 History [Senexon-S Tablet] Buspirone HCl [Buspar] 5 mg PO BID #60 tab 07/10/17 02/02/19 04/02/18 19:00 Rx Lamotrigine [Lamictal] 100 mg PO DAILY #30 tablet 07/10/17 02/02/19 04/02/18 07 :00 Rx Lamotrigine [Lamictal] 150 mg PO QHS #45 tablet 07/10/17 02/02/19 04/02/18 19:00 Rx Acetaminophen [Tylenol] 500 mg PO Q4H PRN PRN 03/23/18 02/02/19 Unknown History Famotidine in 0.9 % NaCl 2.5 ml PO BID 03/23/18 02/02/19 04/01/18 21:00 History [Famotidine 20 mg/5 ml-Ns Syr] Carbidopa/Levodopa [Carbidopa-Levo 1 ea PO DIRECTED 08/10/18 02/02/19 Unknown History ER 50-200 Tab] Magnesium Hydroxide [Milk of 30 ml PO DIRECTED PRN 08/10/18 02/02/19 Unknown History Magnesia] Nystatin Powder [Mycostatin Powder] 1 applicatn TOP DAILY 08/10/18 02/02/19 Unknown History Olanzapine 5 mg PO BID 08/10/18 02/02/19 Unknown History Hydrocodone Bit/Acetaminophen 1 tab PO TID PRN #60 tab 08/12/18 02/02/19 Unknown Rx [Hydrocodon-Acetaminophen 5-325] Lorazepam 0.5 mg PO TID #60 tab 08/12/18 02/02/19 Unknown Rx Metoprolol Succinate E.r. [Toprol 50 mg PO DAILY #30 tab 08/13/18 02/02/19 Unknown Rx Xl] Olanzapine 7.5 mg PO QHS 02/02/19 02/02/19 Unknown History Pantoprazole [Protonix] 40 mg PO DAILY@0700 02/02/19 02/02/19 Unknown History - History of Present Illness -Gen Adult Nature of Presenting Problems: 53yo female who presents from residential with EMS with concerns of fever, n/v, and blood noted at the ostomy bag. Per EMS there was an initial fever at approximately 100. At baseline the pateint is bed bound. The patient has a hx of bipolar and schizophrenia as well as parkinsons disease. The patient is oriented x3 however is lethargic appearing and speech is soft and slow. The patient reports that last night she started to have nausea and vomiting as well as generalized pain and shortness of breath. The patient reports that she has not had diarrhea. She reports that she has pain all over. Review of Systems - Adult - REVIEW OF SYSTEMS - ADULT ROS:: limited per condition Constitutional: denies: fever Eyes: reports: no symptoms reported Ears, Nose, Mouth & Throat: reports: other (mouth pain) Cardiovascular: reports: chest pain Respiratory: reports: shortness of breath Gastrointestinal: reports: abdominal pain, nausea, vomiting. denies: diarrhea Musculoskeletal: reports: other (generalized pain) Integumentary: reports: no symptoms reported. denies: rash Neurological: reports: other (difficulty talking) Psychiatric: reports: no symptoms reported, see HPI Endocrine: reports: no symptoms reported Hematologic/Lymphatic: reports: no symptoms reported Allergic/Immunologic: reports: no symptoms reported Past History - Adult - PAST MEDICAL HISTORY-ADULT Review of Records: reports: Old Records Reviewed Major Childhood Illnesses: reports: denies history Cardiovascular: reports: denies history Respiratory: reports: denies history Gastrointestinal: reports: denies history Obstetrical/Gynecological: reports: denies history Genitourinary: reports: denies history Musculoskeletal: reports: intervertebral disc disease (spinal stenosis) Neurological: reports: Parkinson's Psychiatric: reports: bipolar, psychiatric problems, ptsd, other (conversion d/o) Endocrine/Immune: reports: denies history Other Conditions: reports: denies history - PRIOR SURGERIES/PROCEDURES Surgical/Procedure History: reports: indwelling device (PEG tube) - IMMUNIZATION STATUS Childhood Immunizations: See Nurse Assessment Flu Vaccine: See Nurse Assessment - FAMILY HISTORY Family History: reviewed, not pertinent Physical Exam-General - PHYSICAL EXAM-ADULT Initial Vital Signs Reviewed: Yes - CONSTITUTIONAL General Appearance: alert, no apparent distress, lethargic, slow to respond - EYES Eyes: negative: conjuctival exudate, sclera injected, scleral icterus - HEAD, EARS, NOSE, MOUTH & THROAT HENMT: normocephalic/atraumatic, moist mucous membranes - NECK Neck: non-tender - RESPIRATORY Respiratory: no respiratory distress, decreased breath sounds (RLL). negative: wheezing - CARDIOVASCULAR Cardiovascular: regular rate, rhythm, no edema - GASTROINTESTINAL (ABDOMEN) Abdominal Exam: soft, tenderness (diffuse), other (Ostomy tube noted with some blood, healing G-tube sight without drainage or pathological erythema.). negative: distended, guarding, rebound - MUSCULOSKELETAL Extremity: non-tender - SKIN Integumentary: normal color, warm/dry - PSYCHIATRIC Psych/Mental Status: normal thought process, oriented x 3. negative: normal mood/affect (blunted and withdrawn affect) Progress - PLAN OF CARE/RESULTS Progress/Plan/Lab Results: Vital Signs - 8 hr 02/02/19 21:35 Temperature 98.1 F Pulse Rate 116 H Respiratory Rate 18 Blood Pressure 160/89 O2 Sat by Pulse Oximetry 96 Result Diagrams: 02/02/19 21:40 02/02/19 21:40 - REASSESSMENT Reassessment #1 Status: other (CT scan showing possible SBO vs illieus as well as large staghorn caliculi. Given no hydronephrosis and patient does not appear to be in significant pain, did not consult Nephrology at this time, but did discuss case with hosptialist team. Given patient is technichally septic (tachycardia, Leukocytosis, and UTI as well as reported fever) discussed with the hospitalist team who has accepted the patient.) Departure - Departure Date of Disposition Decision: 02/03/19 Time of Disposition Decision: 00:47 DIAGNOSIS: Nephrolithiasis, Adynamic ileus Sepsis Qualifiers: Sepsis type: sepsis due to unspecified organism Sepsis acute organ dysfunction status: unspecified Qualified Code(s): A41.9 - Sepsis, unspecified organism Disposition: ADMITTED INPATIENT 09 Certified Medical Emergency: Emergent Condition: Fair - Critical Care Note This patient required my direct & personal management of CC.: No Attestation - Physician/ KELSEY Attestation Patient care was provided by Advanced Practice Provider:: No The physician spent face to face time with patient:: Yes Advanced Practice Provider documentation review:: Supervising physician onsite and consulted in the evaluation and care of this patient. The physician did have a face to face encounter with the patient.
[2019-02-02 22:22] LABS: HEMATOCRIT 43.4 % (37.0-47.0); HEMOGLOBIN 13.6 g/dL (12.0-16.0); IMM GRAN# 0.02 X1000 (0.0-0.04); IMM GRAN% 0.2 % (0.0-0.5); LYMPH# 1.25 X1000 (1.2-3.4); LYMPH% 10.3 % (20.5-51.1); MCH 28.8 PG (27-31); MCHC 31.3 g/dL (33-37); MCV 91.9 FL (81-99); MONO# 0.56 X1000 (0.11-0.59); MONO% 4.6 % (1.7-9.3); MPV 10.2 FL (7.4-10.4); NEUT# 10.27 X1000 (1.4-6.5); NEUT% 84.9 % (42.2-75.2); PLT 436 X1000 (130-400); RBC 4.72 XMIL (4.2-5.4); RDW 13.3 % (11.5-14.5)
[2019-02-02 22:25] LABS: INR 1.07
[2019-02-02 22:26] LABS: PTT 31.1 Seconds (22.3-41.8)
--- NOTE | 2019-02-02 22:30 | Diag Imaging Result Doc PS360 ---
CHEST-1 VIEW - 02/02/2019 INDICATION: positive sepsis screen COMPARISON: 08/09/2018 FINDINGS: There is some stable linear atelectasis or scarring in the lateral left lung base. The lungs are clear. Heart size is normal. No pneumothorax or pleural effusion. IMPRESSION: Negative exam. Electronically signed by Tony Jean 02/02/2019 10:28 PM
[2019-02-02 22:33] LABS: AGAP 20; ALB/GLOB RATIO 1.5; ALBUMIN 4.5 g/dL (3.5-5.0); ALKALINE PHOSPHATASE 140 U/L (32-104); BUN 19 mg/dL (8-22); CALCIUM 10.7 mg/dL (8.8-10.2); CHLORIDE 99 mmol/L (98-107); CK PROFILE 19 U/L (24-173); COSMO 292; CREATININE 0.6 mg/dL (0.5-0.9); ESTIMATED GFR > 60; GLUCOSE 121 mg/dL (70-104); GOT 10 U/L (10-30); GPT 15 U/L (10-36); POTASSIUM 4.4 mmol/L (3.5-5.1); SODIUM 145 mmol/L (136-145); TCO2 26 mmol/L (25-35); TOTAL BILIRUBIN 0.19 mg/dL (0.20-1.00); TOTAL PROTEIN 7.6 g/dL (6.3-8.3)
[2019-02-02 22:45] LABS: URINE SOURCE CLEAN CATCH
[2019-02-02 22:48] LABS: BILIRUBIN URINE NEGATIVE (NEGATIVE); BLOOD URINE MODERATE (NEGATIVE); COLOR YELLOW; GLUCOSE URINE NEGATIVE (NEGATIVE); KETONE URINE 60 mg/dL (NEGATIVE); LEUKOCYTES URINE LARGE (NEGATIVE); NITRITE URINE POSITIVE (NEGATIVE); PH URINE 6.5; PROTEIN URINE 100 mg/dL (NEGATIVE); SP GRAVITY URINE 1.022; TURBIDITY URINE TURBID (CLEAR); UROBILINOGEN URINE NORMAL (NORMAL)
[2019-02-02] MEDS ORDERED: NS 1,000 ML IV ONE (22:56)
[2019-02-02 22:59] LABS: UR EPITHELIAL CELLS <10 /HPF (<10); URINE BACTERIA 2+ /HPF; URINE RBC TNTC /HPF (<10); URINE WBC TNTC /HPF (<10)
[2019-02-02 23:00] LABS: URINE YEAST NONE SEEN
[2019-02-02 23:01] LABS: URINE CASTS GRANULAR PRESENT; URINE CRYSTALS NONE SEEN
[2019-02-02] MEDS ORDERED: ROCEPHIN 2 GM in NS 50 ML IV ONE (23:24)
[2019-02-03] MEDS ORDERED: NORCO-5 PO PRN ×2 (00:47→01:18)
[2019-02-03] MEDS ORDERED: MILK OF MAGNESIA PO PRN (00:47)
[2019-02-03] MEDS ORDERED: TYLENOL PO PRN ×2 (00:47→01:17)
[2019-02-03] MEDS ORDERED: NS 1,000 ML IV SCH (00:47)
[2019-02-03] MEDS: ZOFRAN IV PRN ×3 (01:09→14:51)
[2019-02-03] MEDS: NS 1,000 ML IV SCH ×2 (01:47→18:20)
--- NOTE | 2019-02-03 02:35 | HISTORY AND PHYSICAL ---
CHIEF COMPLAINT: Nausea and vomiting. HPI: Ms. Chacon is an unfortunate 53-year-old female who comes in from the [facility] with nausea and vomiting as well as low-grade fever. The patient's baseline is bedbound. She has a history of Parkinson's, bipolar and schizophrenia, as well as spinal stenosis and chronic pain related to that, PE, DVT, GERD, hypertension and osteoporosis. She is alert and oriented at this time. She was found to have an ileus on the CT of her abdomen as well as a urinary tract infection looking at her urine. She will be admitted for further evaluation and treatment. PAST MEDICAL HISTORY: See HPI. PREVIOUS SURGICAL HISTORY: Colostomy, PEG and cholecystectomy. SOCIAL HISTORY: Lives at [facility]. No alcohol, tobacco, or illicit drugs. FAMILY HISTORY: Was reviewed with patient but she stated that she did not have any relevant family history that she was aware of. No family members with Parkinson's or coronary artery disease. ALLERGIES: Glucose, steroids, Geodon. HOME MEDICATIONS: 1. Tylenol 500 p.o. q.4. 2. BuSpar 5 mg p.o. b.i.d. 3. Carbilevodopa 1 p.o. b.i.d., 25/100. 4. Carbilevodopa Extended Release 50/200 at 11 and 9 daily. 5. Famotidine 2.5 mg b.i.d. 6. [place] 5 p.o. t.i.d. 7. Lamictal 100 mg p.o. daily, and 150 mg p.o. at bedtime. 8. Lorazepam 0.5 mg p.o. t.i.d. 9. Milk of magnesia 30 mL p.r.n. 10. Metoprolol 50 mg p.o. daily. 11. Multivitamin 1 p.o. daily. 12. Nystatin powder 1 application to skin folds daily. 13. Zyprexa 5 mg p.o. b.i.d. and 7.5 mg p.o. at bedtime. 14. Zofran 4 mg p.o. q.8 p.r.n. 15. Protonix 40 mg p.o. daily. 16. Miralax 17 g p.o. daily. 17. Sennosides-docusate sodium 2 tablets p.o. b.i.d. REVIEW OF SYSTEMS: A 14 point review of systems conducted with the patient. Pertinent positives listed above in the HPI. All other systems reviewed and found to be negative. PHYSICAL EXAMINATION: VITAL SIGNS: Temperature 98 degrees, pulse 105, respirations 24, blood pressure 138/89, oxygen saturation 96% on room air. GENERAL: A 53-year-old female lying in the ER stretcher. She is alert and oriented x3, in no acute distress. HEENT: Head is atraumatic, normocephalic. Pupils equal, round, reactive to light. Extraocular eye movements intact. Sclera anicteric. Conjunctiva pink. Oral mucosa is dry. NECK: Supple. No JVD. No thyromegaly. Trachea is midline. No cervical lymphadenopathy. CARDIAC: S1, S2, appreciated. No murmurs, gallops, rubs. LUNGS: Clear to auscultation bilaterally. No rhonchi, wheezes or rales. Symmetric rise and fall with respirations. ABDOMEN: Soft, nontender in the right lower quadrant. Ostomy has noted blood in the bag, a very small amount. EXTREMITIES: No clubbing, cyanosis or edema. Bilateral foot drop noted. Clonus noted in her right lower extremity. Patient also has tardive dyskinesia in her upper extremities and are drawn in towards her core. They do not seem to be contracted necessarily, however, she is not able to lift her upper extremities on command. MUSCULOSKELETAL: 1 to 2 out of 5 strength bilateral upper extremities. She does have a good hand railway head tender 2 out of 5 left lower extremity, 1 out of 5 right lower extremity. I believe this is around baseline as she is chronically bedbound. NEUROLOGICAL: She is alert and oriented x3. Please see above for full musculoskeletal exam. Patient does have somewhat of a tremor to her tongue or darting tongue movement. I believe that this is also tardive dyskinesia movement. Does not appear to have facial asymmetry. Cranial nerves 2-12 seem to be otherwise intact. DIAGNOSTIC DATA: CT of the abdomen showed ileus. Chest x-ray negative exam. LABORATORY DATA: WBC 12.10, hemoglobin 13.6, hematocrit 43.4, platelet count 436. Sodium 145, potassium 4.4, chloride 99, carbon dioxide 26, BUN 19, creatinine 0.6, glucose 121. Urine leuk esterase positive, too numerous to count WBCs, positive for hematuria, 2+ bacteria. ASSESSMENT AND PLAN: 1. Urinary tract infection. Was given 1g of Rocephin. Will exchange engineer to Zosyn. This will treat any intraabdominal bacteria as well as the urinary tract infection. We are waiting on urine cultures. 2. Intractable nausea and vomiting. The patient was noted to have ileus on the scan. Will hold n.p.o. If she continues to have nausea and vomiting may pursue placing an NG tube. Will give IV fluids. 3. Parkinson's, aware. Continue home medications. 4. Multiple behavior disorders, aware. Continue home medications. 5. Hypertension. Continue home medications. 6. Further recommendations per patient's clinical course. Dictated by DIAZ Zamora for Len Dee MD I have performed a face to face diagnostic evaluation. Labs/ Xrays- reviewed. Exam- Chest- clear, CV- regular, Abd- soft. A/P- N/V; UTI- Admit, IV fluids, antiemetics, NPO, IV ABX. Dr. Dee cc: DIAZ Zamora MD [facility]
[2019-02-03 04:20] LABS: BASO# 0.01 X1000 (0.0-0.2); BASO% 0.1 % (0.0-0.8); HEMATOCRIT 39.2 % (37.0-47.0); HEMOGLOBIN 12.2 g/dL (12.0-16.0); IMM GRAN# 0.04 X1000 (0.0-0.04); IMM GRAN% 0.3 % (0.0-0.5); LYMPH# 1.44 X1000 (1.2-3.4); LYMPH% 9.4 % (20.5-51.1); MCHC 31.1 g/dL (33-37); MCV 93.1 FL (81-99); MONO# 1.01 X1000 (0.11-0.59); MONO% 6.6 % (1.7-9.3); NEUT# 12.84 X1000 (1.4-6.5); NEUT% 83.6 % (42.2-75.2); PLT 383 X1000 (130-400); RBC 4.21 XMIL (4.2-5.4); RDW 13.4 % (11.5-14.5); WBC 15.34 X1000 (4.8-10.8)
[2019-02-03 04:49] LABS: AGAP 13; BUN 17 mg/dL (8-22); CALCIUM 9.9 mg/dL (8.8-10.2); CHLORIDE 104 mmol/L (98-107); COSMO 289; CREATININE 0.5 mg/dL (0.5-0.9); ESTIMATED GFR > 60; GLUCOSE 111 mg/dL (70-104); POTASSIUM 3.7 mmol/L (3.5-5.1); SODIUM 144 mmol/L (136-145); TCO2 27 mmol/L (25-35)
[2019-02-03] MEDS: ZOSYN 3.375 GM in NS 50 ML IV SCH ×4 (04:49→20:59)
[2019-02-03] MEDS: ATIVAN PO SCH ×4 (06:24→20:55)
[2019-02-03] MEDS: MIRALAX PO SCH (06:24)
[2019-02-03] MEDS: SINEMET 25/100 PO SCH ×2 (06:25→14:51)
[2019-02-03] MEDS: PROTONIX PO SCH (06:25)
[2019-02-03] MEDS ORDERED: SINEMET 25/100 PO SCH (07:00)
--- NOTE | 2019-02-03 07:41 | Diag Imaging Result Doc PS360 ---
EXAM: CT ABD/PELVIS W/IV CONT ONLY INDICATION: SIRs positive, abdominal pain, blood in ostomy bag TECHNIQUE: This exam was performed using automated exposure control, adjustment of mA or kV according to patient size, and/or use of iterative reconstruction technique. COMPARISON: None. FINDINGS: There is subsegmental atelectasis and/or scarring at the lung bases. There has been a prior cholecystectomy. There is a tiny hypodense focus involving the periphery of the right hepatic lobe likely representing a small cyst. The liver is grossly unremarkable, otherwise. There is a small subcapsular cyst at the superior aspect of the spleen. There is no splenomegaly. The pancreas and adrenal glands are unremarkable. There are a few small simple appearing renal cysts bilaterally. There are prominent stones associated with the left renal collecting system including a large stone in the renal pelvis measuring over 2 cm. There is bilateral heterogeneous renal enhancement in the pattern of a striated nephrogram. Some of this corresponds to renal cortical scarring on the right. However, it is suspicious for pyelonephritis, at least on the left. Please correlate clinically. There is no significant hydronephrosis. There is mild increased enhancement associated with the urothelium of the left renal pelvis and proximal left ureter, likely due to the stones and possibly infection. The urinary bladder is largely nondistended. The urinary bladder wall is mildly thickened but this may be due to underdistention. A component of cystitis should also be considered. The reproductive tract is grossly unremarkable as imaged. There has been prior partial resection of the sigmoid colon. A colostomy is noted and is patent. There is no colonic distention. However, there are several loops of distended small bowel at the left side of the abdomen, mainly in the left upper quadrant, suggesting adynamic ileus versus early bowel obstruction. The remainder of the GI tract is essentially unremarkable. There is no evidence of acute osseous abnormality. IMPRESSION: 1.Large stones in the left renal pelvis as described with bilateral abnormal renal enhancement that is suspicious for pyelonephritis. Please see above discussion. 2.Several distended loops of small bowel mainly in the left upper quadrant suggesting adynamic ileus versus early obstruction. 3.Other incidental/nonacute findings detailed above. Electronically signed by Damien Ely 02/03/2019 7:39 AM
[2019-02-03] MEDS ORDERED: BUSPAR PO SCH (09:00)
[2019-02-03] MEDS ORDERED: LAMICTAL PO SCH ×2 (09:00→21:00)
[2019-02-03] MEDS ORDERED: ZYPREXA PO SCH (09:00)
[2019-02-03] MEDS: BUSPAR PO SCH ×2 (14:12→20:49)
[2019-02-03] MEDS: PEPCID PO SCH ×2 (14:13→20:51)
[2019-02-03] MEDS: PERICOLACE PO SCH ×2 (14:13→20:50)
[2019-02-03] MEDS: THERA M PLUS PO SCH (14:14)
[2019-02-03] MEDS: SINEMET CR 25/100 PO SCH ×2 (14:14→18:46)
[2019-02-03] MEDS: ZYPREXA PO SCH ×2 (14:16→20:52)
--- NOTE | 2019-02-03 14:18 | PROGRESS NOTE ---
DATE: 02/03/2019 SUBJECTIVE: Ms. Chacon is a resident of [facility] long-term due to debilitating Parkinson disease associated with other psychiatric illness including schizoaffective disorder, bipolar type. She presented yesterday because of intractable nausea and vomiting. She seems to be doing a lot better today. OBJECTIVE: Vital signs: Blood pressure is 135/70, pulse of 110, respiration is 18, temperature is 98.6 degrees. The patient is saturating 96% on room air. General: Ms. Chacon is a 53-year- old female. She is in bed in no distress. HEENT: Mucosa is pink and moist. Anicteric. Acyanotic. Neck: Supple. Chest: Good air entry bilaterally. No crepitations. Cardiovascular: Regular rate and rhythm. GI: Abdomen is soft. There is a colostomy on the left side of the abdomen with a bag. There is an old PEG tube site in the mid epigastrium that is covered with sterile dressing. Extremities: No pedal edema. FIBER GLASS WORKER: The patient is awake, alert, oriented. She does have some upper extremity hand atrophies, especially the hypothenar and the thenar eminences. There is also tongue fasciculations. The lower extremity seems to have clonus and some hyperreflexia. No cogwheel rigidity. some facial expression noted. LABORATORY DATA: WBC is 15.34, hemoglobin is 12.2, platelet count of 383. Chemistry is reviewed, is completely within normal range. The patient's urinalysis is showing gram- negative priscilla. Blood culture still pending. ASSESSMENT: 1. Intractable nausea and vomiting, improved. 2. Gram-negative priscilla urinary tract infection. 3. History of chronic neurocognitive decline, presumably due to longstanding debilitating Parkinson disease. Patient used to be following up with Neurology in [place]. She is currently on carbidopa/levodopa. She will be evaluated by Neurology here. 4. History of schizoaffective disorder, bipolar type. 5. Status post diverting end-colostomy for a previous non decubitus ulcer. PLAN: So in general, I think Ms. Chacon is fairly stable. Nausea and vomiting has significantly improved, so we are going to start her on ice chips and clears. If she is able to tolerate that, we will advance her diet as tolerated. cc: Jorge Lundy MD MTDD
[2019-02-03] MEDS: TOPROL XL PO SCH (14:51)
[2019-02-03] MEDS: LAMICTAL PO SCH ×2 (14:58→20:49)
[2019-02-03] MEDS: MYCOSTATIN POWDER TOP SCH (16:26)
--- NOTE | 2019-02-03 20:42 | GASTROENTEROLOGY CONSULTATION ---
DATE: 02/03/2019 REASON FOR CONSULTATION: Blood in ostomy bag. HISTORY OF PRESENT ILLNESS: This is a 53-year-old, female. We have not seen her in the office in the past. We had seen her in the hospital for PEG tube replacement in April,. She had malfunctioning percutaneous endoscopic gastrostomy tube that was replaced on 05/03/2017. Per nursing report, her PEG tube was removed several months ago because she was eating by mouth. Patient was brought in to the hospital from [facility] due to nausea, vomiting, and low- grade fever. Patient is bed bound due to Parkinson's disease and bipolar disorder, along with schizophrenia. There was no family at the bedside. Patient does speak, but it is difficult to understand her. Most of the information is obtained from the chart. Patient did report episodes of nausea and vomiting. She is asking for some ice chips. She does not know the details of the bleeding from her ostomy. She denies abdominal pain. CT scan done on admission showed: 1. Large stones in the left renal pelvis with bilateral abnormal renal enhancement, questionable pyelonephritis. 2. Several distended loops of small bowel in the left upper quadrant suggesting ileus versus early obstruction. PAST MEDICAL HISTORY: Parkinson's disease, bipolar disorder, schizophrenia, spinal stenosis, chronic pain, history of pulmonary embolus and DVT, history of GERD, hypertension, osteoporosis. PAST SURGICAL HISTORY: PEG tube placement and removal, colostomy, cholecystectomy. ALLERGIES: Corticosteroids, unknown reaction; Geodon, unknown reaction. HOME MEDICATIONS: Tylenol 500 mg every 4 hours as needed, BuSpar 5 mg twice a day, carbidopa levodopa 25/100 one twice a day, carbidopa/levodopa extended release 50/200 one as directed, famotidine 2.5 mL twice a day, hydrocodone/acetaminophen 5/325 one tablet 3 times a day as needed, Lamictal 150 mg every night, Lamictal 100 mg daily, lorazepam 0.5 mg 3 times a day, Milk of Magnesia 30 mL as directed, metoprolol 50 mg daily, multivitamin 1 daily, Nystatin powder topical daily, olanzapine 5 mg daily, olanzapine 7.5 mg every night, Zofran 4 mg every 8 hours as needed, Protonix 40 mg daily, MiraLAX 17 g daily, senna 2 tablets twice daily. SOCIAL HISTORY: She lives at [facility]. No alcohol or tobacco use reported. REVIEW OF SYSTEMS: Per history of present illness. PHYSICAL EXAMINATION: Vital Signs: Temperature 98.6 degrees, pulse 110, respirations 18, blood pressure 135/70. General: Patient is awake and alert. She has very soft speech, and sometimes somewhat slurred and difficult to understand. HEENT: Normocephalic, atraumatic. Pupils equal, round, reactive to light. Sclerae are nonicteric. Cardiovascular: Regular rate and rhythm. Lung sounds essentially clear. Abdomen: Soft. No real tenderness elicited. Ostomy intact. There is a small amount of dark, maroonish colored blood in the bag. There is no stool noted in the bag. She does have some noted granulation tissue around the stoma site which could possibly be bleeding. Extremities: Bilateral footdrop noted. Otherwise, no lower extremity edema noted. Neurological: She is awake and alert. She does speak, but very soft speech and difficult to understand at times. DIAGNOSTIC RESULTS/LABORATORY: Hematology: WBC 15.34, hemoglobin 12.2, hematocrit 39.2, MCV 93.1, platelet 383,000. ProTime 14.0. INR 1.07, PTT 31.1. Chemistry: Sodium 144, potassium 3.7, chloride 104, CO2 of 27, BUN 17, creatinine 0.5, glucose 111, calcium 9.9. Total bilirubin 0.19, AST 10, ALT 15, alkaline phosphatase 140. Urinalysis: Positive for urinary infection. Microbiology: Influenza screen was negative. Urine culture showed gram- negative rods. IMAGING: Abdominal pelvis CT showed large stones in the left renal pelvis with bilateral abnormal renal enhancement suspicious for pyelonephritis, several distended loops of small bowel mainly in the left upper quadrant suggesting ileus versus early obstruction. ASSESSMENT AND PLAN: 1. Urinary tract infection versus pyelonephritis. The patient is on antibiotics. 2. Nausea, vomiting. Possibly related to urinary tract infection. We recommend p.r.n. medications for nausea. Also, possibility of nausea and vomiting related to possible ileus. The patient had been held NPO. We will allow clear liquids. We recommend she get her laxative regimen restarted. 3. Parkinson's disease. Continue current medications. 4. Bipolar disorder/schizophrenia. Recommend to resume her home medications. 5. Blood in ostomy bag. Patient does have noted granulation tissue, redness area around the stoma. I have consulted ostomy nurse for evaluation of stoma area. Patient has normal hemoglobin and hematocrit with no evidence of nela gastrointestinal bleeding. She does have a small amount of blood in the ostomy bag. We will continue to follow. Continue to monitor hemoglobin and hematocrit. She had PEG removed apparently several months ago, has a dressing over it. It does not seem to be closing up. We would recommend if possible, leaving that site open to air. We will continue to follow and further plans will be made according to her progress. I have discussed this case with Dr. Keita. Dictated by DIAZ Solis for Wing Keita MD cc: DIAZ Khan MD [facility]
--- NOTE | 2019-02-03 21:20 | CONSULTATION ---
DATE OF CONSULTATION: 02/03/2019 HISTORY OF PRESENT ILLNESS: Ms. Chacon is 53 years old and she is a yoga instructor senior living resident, admitted with nausea and vomiting. Neurologic history goes back to about 10 years ago, based on report from patient and family at the bedside, including her parents. She began to have some parkinsonian features, and family reports diagnosis of Parkinson disease. On careful questioning, Ms Chacon agrees that she was told she had symptoms of Parkinson's related to medication effects, and not idiopathic Parkinson disease. She has longstanding problems with psychosis. She has a diagnosis here of bipolar disorder, schizoaffective disorder. There is history of major depression. She believes she has been taking Sinemet for most of the last 10 years. She believes Sinemet has provided some benefit in the past, but she reports she is not certain Sinemet is providing benefit now. Review of the prior hospitalizations here shows carbidopa/levodopa 25/100 b.i.d. and q.i.d. in the past, and t.i.d. this admission, along with carbidopa levodopa extended release 50/200 b.i.d. (700 mg total levodopa dose currently). For bipolar, she has been taking lamotrigine chronically, 100 mg a.m./one 150 mg p.m. Other potential [employer]PERATOR active medicines include lorazepam 0.5 mg t.i.d., hydrocodone 5 mg t.i.d., buspirone, olanzapine. According to patient and family, she last walked unassisted 4 or 5 years ago. She reports she last walked with assistance a few years ago, but mother believes patient may still be helped up to take a few steps with walker in recent months. There is history of problems with nutrition requiring feeding tube, which was removed a few months ago. Her appetite has been okay and weight has been stable in recent months. She has been afebrile. Heart rate has ranged 100s to 110s. Systolic blood pressures have ranged 130s to 160s. Lab shows WBC 15,000, glucose 121, evidence of UTI. We do not have report of a brain imaging study for this admission. Computer record shows 07/11/[address] of the head with mild atrophy, nothing focal or acute. PHYSICAL EXAMINATION: On exam, she is awake, alert, mostly attentive. She answered questions appropriately. Her voice is soft, but easily understood. Speech is not significantly dysarthric. Language function is intact. I did not test her cognitive function. Head and neck are unremarkable. Visual lemons are full, tested grossly by confrontational finger counting. Extraocular movements are full, including good upgaze. Facial motility is a little bit diminished symmetrically, but she does show some facial expression. She reports good sensation over the face. Tongue is midline. She was very feeble with voluntary limb movement. She initially did not raise her arms when asked, but then was able to raise her arms off the bed. Her limbs are thin. I did not see fasciculation. She has weakness in the hands with some intrinsic hand muscle atrophy bilaterally, fingers on both hands mostly flexed at the IP joints. Tone is not particularly increased right now. There is not cogwheeling or rigidity. I did not see any resting tremor. She is tremulous on [id number] testing, but there is not a classifiable tremor. I did not ask her to stand. Plantar response is silent bilaterally. 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 I can certainly not rule out idiopathic Parkinson disease or parkinsonism with etiology other than chronic dopamine michelle medication effect. She presented with chief complaint of nausea and vomiting. In that setting, I will check the lamotrigine level. We discussed potential for either lamotrigine or levodopa to aggravate nausea. I think she looks better in general from parkinsonian standpoint than I expected, and I do not think we have to do anything urgently from neurology standpoint. If we do need to make any medication adjustment, I might consider slightly reducing the levodopa dose, and then following clinically, considering further levodopa reduction if tolerated and if she is improved. I would defer lamotrigine dose adjustment to Psychiatry. I will be glad to see her for Neurology followup as an outpatient, if she desires. Alternatively, she might return to [place], where she and family believe she last saw a neurologist and a psychiatrist several years ago. cc: MD MARIANELA Rock III
[2019-02-04] MEDS: ZOSYN 3.375 GM in NS 50 ML IV SCH (03:12)
[2019-02-04] MEDS: ATIVAN PO SCH ×3 (06:00→18:17)
[2019-02-04] MEDS: PROTONIX PO SCH (06:01)
[2019-02-04] MEDS: SINEMET 25/100 PO SCH ×2 (06:01→15:23)
[2019-02-04] MEDS: MIRALAX PO SCH (06:01)
[2019-02-04] MEDS ORDERED: ROCEPHIN 1 GM in NS 50 ML IV SCH (09:30)
[2019-02-04] MEDS: ZYPREXA PO SCH ×2 (10:17→20:18)
[2019-02-04] MEDS: BUSPAR PO SCH ×2 (10:17→20:17)
[2019-02-04] MEDS: THERA M PLUS PO SCH (10:18)
[2019-02-04] MEDS: PEPCID PO SCH ×2 (10:18→20:16)
[2019-02-04] MEDS: PERICOLACE PO SCH ×2 (10:19→20:16)
[2019-02-04] MEDS: LAMICTAL PO SCH ×2 (10:19→20:17)
[2019-02-04] MEDS: TOPROL XL PO SCH (10:19)
[2019-02-04] MEDS: NS 1,000 ML IV SCH (10:32)
[2019-02-04] MEDS: SINEMET CR 25/100 PO SCH ×2 (13:01→18:17)
[2019-02-04] MEDS: MYCOSTATIN POWDER TOP SCH (19:53)
--- NOTE | 2019-02-04 19:57 | PROGRESS NOTE ---
DATE: 02/04/2019 SUBJECTIVE: I have seen and examined Ms. Chacon today. The mother and the father were at the bedside. Ms. Chacon looks a whole lot better. Interim history is that Ms. Chacon has not walked for the past 5 years. According to the mother, about 4 or 5 years ago, when the patient used to live with them, she would only make some few steps. Every now and then, she would get down on the ground like she could not make the next move, and then she would just fall down. [facility] and since then, she has just been bed-bound. OBJECTIVE: Vital signs: Her current vitals: Blood pressure is 138/72, pulse of 81, respirations 14, temperature is 98.9 degrees. General: Ms. Chacon is a 53-year-old female. She is in bed in no distress. HEENT: Mucosa is pink and moist. Anicteric. Acyanotic. Neck: Supple. Chest: Good air entry bilaterally. There are no crepitations, no rhonchi. Cardiovascular: Regular rate and rhythm. There are no murmurs, no rubs, no gallops. GI: Abdomen is soft. Bowel sounds present. There is a colostomy on the left side of the abdominal wall. The bag is filled with some fecal material. There is an old PEG tube site in the mid epigastrium which has epithelialized with no tract. Bowel sounds are present. Extremities: No pedal edema. WHEELCHAIR VAN DRIVER: Patient is awake, alert. Has clear speech this morning. Some mild atrophy is in the hand joints. I did not see any fasciculations today. Lower extremities seem, for the most part, good power and pushing my hands down, but she was not able to lift it completely against gravity. There was no cogwheel rigidity and she did have some facial expression. LABORATORY DATA: From yesterday reviewed. ASSESSMENT: 1. Intractable nausea and vomiting, improved. Patient is currently tolerating clear liquid diet. We are going to advance this to full liquid and as tolerated. There is also concern that this could be Lamictal induced side effects. Levels have been ordered by Neurology. 2. Proteus mirabilis urinary tract infection. The patient has been switched to ceftriaxone for just once daily administration. 3. Parkinson disease. It appears that Ms. Chacon has been on multiple psychotropic medications for bipolar and schizoaffective disorder, and it is very possible that the parkinsonism is secondary to medication side effects. The patient has been evaluated by Neurology, and Dr. Her will follow her on outpatient basis to determine the right combination of medication for both her psychiatric and her parkinsonism. 4. History of schizoaffective disorder, bipolar type. The patient is on Lamictal, olanzapine. 5. Status post diverting end colostomy for previous nonhealing decubitus ulcer noted. PLAN: So, in general, I think Ms. Chacon is doing a lot better. She is more alert. She is conversational this morning. Her urine culture is showing Proteus mirabilis. Antibiotics have been narrowed accordingly. We are going to advance her diet and re-evaluate her in the morning. If she remains stable, I think she will be okay to be discharged back to the [facility] and for her to follow up with Dr. Her. cc: Jorge Lundy MD
[2019-02-05] MEDS: MYCOSTATIN POWDER TOP SCH ×2 (00:36→10:43)
[2019-02-05] MEDS: NS 1,000 ML IV SCH (04:05)
[2019-02-05] MEDS: ATIVAN PO SCH (06:02)
[2019-02-05] MEDS: PROTONIX PO SCH (06:03)
[2019-02-05] MEDS: SINEMET 25/100 PO SCH (06:03)
[2019-02-05] MEDS: MIRALAX PO SCH (06:03)
[2019-02-05] MEDS ORDERED: KEFLEX PO SCH (09:00)
[2019-02-05] MEDS: LAMICTAL PO SCH (10:27)
[2019-02-05] MEDS: BUSPAR PO SCH (10:27)
[2019-02-05] MEDS: PEPCID PO SCH (10:27)
[2019-02-05] MEDS: THERA M PLUS PO SCH (10:27)
[2019-02-05] MEDS: ZYPREXA PO SCH (10:28)
[2019-02-05] MEDS: TOPROL XL PO SCH (10:28)
[2019-02-05] MEDS: PERICOLACE PO SCH (10:28)
--- NOTE | 2019-02-05 10:47 | DISCHARGE SUMMARY ---
ADMISSION DATE: 02/02/2019 DISCHARGE DATE: 02/05/2019 DISPOSITION: Back to [facility] FOLLOWUP: 1. Tahir Dobson. 2. Dr. Her. CONSULTATIONS DURING THIS ADMISSION: 1. Neurology was consulted. Patient was seen by Dr. Her. 2. GI. The patient was seen by Dr. Keita. INVASIVE PROCEDURES DONE DURING THIS ADMISSION: None. IMAGING STUDIES OF SIGNIFICANCE: 1. A chest x-ray showed no acute findings. 2. CT scan of the abdomen and pelvis showed large stones in the left renal pelvis suspicious for pyelonephritis. Several distended loops of small bowel seen. ADMISSION DIAGNOSES: 1. Urinary tract infection. 2. Intractable nausea and vomiting. 3. Multiple behavioral disorders. 4. Hypertension. DISCHARGE DIAGNOSES: 1. Intractable nausea and vomiting on admission secondary to pyelonephritis. However, medication side effect was also suspected. 2. Proteus mirabilis bilateral pyelonephritis. 3. Large left renal pelvis stones. 4. Ileus on presentation. 5. Parkinson's disease, presumably source suspected to be medication-induced parkinsonism. 6. History of schizoaffective disorder, bipolar type. 7. Status post diverting end-colostomy for previous nonhealing decubitus ulcer. 8. Limited mobility with bedbound. 9. [facility] resident. DISCHARGE MEDICATIONS: 1. Carbidopa/levodopa 2500 b.i.d. 2. MiraLAX 17 g p.o. daily. 3. Sophie-Colace. 4. Lamictal 150 mg p.o. at bedtime, 100 mg p.o. q.a.m. 5. Buspirone 5 mg b.i.d. 6. Carbidopa/levodopa ER one daily. 7. Lorazepam 0.5 three times per day. 8. Metoprolol 50 mg p.o. daily. 9. Pantoprazole 40 mg p.o. daily. 10. Olanzapine 7.5 mg p.o. at bedtime and 5 in the morning. 11. Cephalexin 500 mg b.i.d. PRESENTING COMPLAINT: Nausea and vomiting. HISTORY OF PRESENTING COMPLAINT: Ms. Chacon is a 53-year-old, female who is bedbound and a resident of a jail. She has a history of bipolar disorder, schizophrenia, and Parkinson's disease. Came in because of nausea and vomiting. Patient was evaluated. A CAT scan seems to suggest pyelonephritis, kidney stones. Ms. Chacon was admitted for further medical care. HOSPITAL COURSE: Ms. Chacon was admitted to the medical floor. Was initially kept NPO, fluid resuscitated, was started on broad-spectrum IV antibiotics. Cultures were done. Subsequently, the blood cultures came back 48 hours negative. Flu was negative. Patient's urine sample came back positive for Proteus mirabilis. Antibiotics were changed to target the specific pathogen. During the hospital course, Ms. Chacon continued to show remarkable improvement. The nausea and vomiting resolved. She was able to tolerate some clears and this was subsequently advanced to a mechanical soft diet. Today, she refers to be doing okay. No new complaints. She has not had any more nausea and vomiting. She is having adequate output in her ostomy. She consumed about 50% of her dinner last night. We think she is fairly stable to be discharged. She is going to continue with Keflex to complete a total of 7 days of antimicrobial therapy. She is also going to be evaluated on an outpatient basis by Dr. Her. Of note, Ms. Chacon has been on psychotropic medications for schizoaffective disorder for a very long time and it is perceived that those medications have caused some of her parkinsonism symptoms. There have been discussions about having the medication being titrated, which Dr. Her will follow up on that. The patient will also need a psychiatrist locally. I spoke extensively with the mother and the father yesterday and notified them about the current conditions and the fact that we think some of her antipsychotic medications, specifically olanzapine, could cause some of her parkinsonism and that Dr. Her will look into that at outpatient basis. Ms. Chacon's current vitals, blood pressure is 146/78, pulse of 73, respirations are 16, temperature is 98.1 degrees. She is saturating 98% on room air. We think she is clinically stable for discharge. Time spent for discharge is 37 minutes. RECOMMENDATIONS: Ms. Chacon has been found to have renal kidney stones which are currently asymptomatic. She has been advised to keep a very good hydration status and probably follow up with urology at some point. cc: MD Tahir Villalobos III, MD
[2019-02-05 13:03] VITALS: BP 141/77
--- NOTE | 2019-02-05 13:08 | PROGRESS NOTE ---
DATE: 02/05/2019 Ms. Chacon is awake, alert, and attentive. She seems a little bit brighter today. She reports she does feel better. I do not have any new thoughts or new suggestions from Neurology standpoint. I will be glad to follow her as an outpatient if desired. We might consider making some adjustments in her Parkinson's management. Thanks for asking Neurology to see Ms. Chacon. cc: Yoseph Her III, MD
== END 2019-02-05 14:02 | DRG 389 ==
LOC: SUPCPDRO → ED 21:20 → 1N 02-03 00:35 → SUATTDRO 02-03 00:35
PROVIDERS: ATTEND Internal Medicine